=== PATIENT | female | born 1945 | race Caucasian/White ===

== ENCOUNTER 2016-08-21 19:49 | Emergency (ER) | payer OTHER ==
[~2016-08-21] VITALS: Ht 167.6 cm; Wt 53.4 kg
[~2016-08-21 19:49] MED LIST: ACTONEL150 MG PO; ALBUTEROL SULF8.5 GM IH; AMLODIPINE BESYL5 MG PO; AZITHROMYCIN250 MG PO; AZULFIDINE500 M1 PO; CALTRATE PLUS1 EACH PO; CENTRUM SILVER1 EAC3 PO; DIOVAN160 MG PO; DOXYCYCLINE HYC20 MG PO; ENBREL50 MG/1 ML SC; ERYTHROMYCIN O3.5 GM BOTH EYES; FOLIC ACID1 MG PO; HYDROCHLOROTH12.5 M3 PO; LAMISIL250 MG PO; LOW DOSE ASPIRI81 M1 PO; MICROZIDE12.5 M1 PO; MUCINEX600 MG PO; OMEGA 3 1,0001 EACH PO; PREDNISONE10 MG PO; RESTASIS 01 DROP/0.4 BOTH EYES; SOLARAZE 3% GEL50 GM TP; STRESS B-COMPL1 EACH PO; ZEBETA5 MG PO; ZOFRAN ODT8 MG PO
[2016-08-21 21:05] LABS: HEMATOCRIT 34.7 % (36.0-46.0); MCH 30.2 PG (29.0-34.0); MCHC 33.7 G/DL (30.0-36.0); MCV 89.4 FL (83-99); MEAN PLAT.VOLUME 10.7 uM^3 (9.5-12.4); PLATELET COUNT 233 K/uL (156-360); RBC DIS.WIDTH-CV 11.9 % (11.8-14.6); RBC DIS.WIDTH-SD 38.1 % (39-53); RED BLOOD COUNT 3.88 M/uL (3.80-5.20); WHITE BLOOD COUNT 9.4 K/uL (4.1-10.2)
[2016-08-21 21:17] LABS: CHLORIDE 103 mEq/L (99-109); POTASSIUM 3.8 mEq/L (3.7-5.4); SODIUM 135 mEq/L (136-147)
[2016-08-21 21:19] LABS: GLUCOSE 99 mg/dL (70-99)
[2016-08-21 21:20] LABS: ANION GAP 10 MEQ/L (2-14)
[2016-08-21 21:23] LABS: GFR ESTIMATE (CALCULATED) > 59 mL/min/
[2016-08-21 21:24] LABS: TROP-I INTERPRETATION NEGATIVE; TROPONIN-I 0.02 ng/mL (0.0-0.30); UREA NITROGEN (BUN) 12 mg/dL (9-23)
[2016-08-21] MEDS ORDERED: PREDNISONE20 MG PO (23:22)
[2016-08-21] MEDS ORDERED: VENTOLIN HFA18 GM IH (23:22)
[2016-08-21 23:40] LABS: INFLUENZA A VIRAL ANTIGEN NEGATIVE; INFLUENZA B VIRAL ANTIGEN NEGATIVE
[2016-08-22 00:02] VITALS: BP 111/67
[2016-09-04] MEDS ORDERED: NORVASC10 MG PO (13:44)
[2016-09-04] MEDS ORDERED: SIMPONI AR50 MG/4 ML IV (13:48)
[2016-09-04] MEDS ORDERED: INCRUSE ELLI62.5 MCG IH (13:49)
[2016-09-04] MEDS ORDERED: BREO ELLIPTA I1 EACH IH (13:49)
[2016-09-04] MEDS ORDERED: CALTRATE 600 +1 EAC1 PO (13:50)
[2016-09-04] MEDS ORDERED: CENTRUM SILVER1 EAC4 PO (13:50)
[2016-09-04] MEDS ORDERED: PROBIOTIC1 EAC5 PO (13:51)
[2016-09-04] MEDS ORDERED: BIOTIN1000 MCG PO (13:51)
[2016-09-04] MEDS ORDERED: TEARS NATURALE1 EACH BOTH EYES (13:52)
[2016-09-04] MEDS ORDERED: SLEEP AID25 M1 PO (13:52)
== END 2016-08-22 00:05 | disposition home or self-care (01) ==
LOC: EME 19:49
PROVIDERS: Emergency Medicine
DX: J44.1 Chronic obstructive pulmonary disease with (acute) exacerbation (principal); M79.7 Fibromyalgia; I10 Essential (primary) hypertension; M06.9 Rheumatoid arthritis, unspecified; Z85.3 Personal history of malignant neoplasm of breast; Z79.82 Long term (current) use of aspirin
CPT/HCPCS: 71020; 80048; 84484; 85027; 87502; 93005; 94640; 99281; 99285; J2930